=== PATIENT | male | born 1950 | race Caucasian/White ===

== ENCOUNTER 2016-12-01 17:59 | Emergency (ER) | payer OTHER, MEDICARE | END 2016-12-01 20:44 | disposition home or self-care (01) | LOC: ER1 17:59 | DX: S76.012A Strain of muscle, fascia and tendon of left hip, initial encounter (principal); S80.812A Abrasion, left lower leg, initial encounter; E78.5 Hyperlipidemia, unspecified; Z79.82 Long term (current) use of aspirin; Z79.899 Other long term (current) drug therapy; Z23 Encounter for immunization; V89.2XXA Person injured in unspecified motor-vehicle accident, traffic, initial encounter; Y93.89 Activity, other specified; Y92.410 Unspecified street and highway as the place of occurrence of the external cause | CPT/HCPCS: 73502; 73590; 90471; 90714; 99283 ==